=== PATIENT | female | born 1995 | race American Indian/Alaskan Native ===

== ENCOUNTER 2020-02-16 21:16 | Emergency (ER) | payer SELFPAY ==
[2020-02-16 21:31] VITALS: BP 123/68
[2020-02-16] MEDS ORDERED: IBUPROFEN 600 MG TAB PO ONE (21:34)
[2020-02-16] MEDS ORDERED: predniSONE 20 MG TAB PO ONE (21:34)
[2020-02-16] MEDS ORDERED: ACETAMINOPHEN 500 MG TAB PO ONE (21:35)
[2020-02-16 22:20] LABS: Bacteria,Urine 1+ /HPF (Negative); Bilirubin,Urine NEG (Negative); Blood,Urine NEG (Negative); Color,Urine Yellow (Yellow); Mucus,Urine FEW /HPF; Protein,Urine <15 mg/dL mg/dL (Negative); RBC,Urine < 1.0 /HPF (0.0-6.0); Urobilinogen,Urine < 2.0 mg/dL (<2.0)
[2020-02-16 22:21] LABS: HCG Qualitative,Urine Negative (Negative)
--- NOTE | 2020-02-16 23:12 | Emergency Department Report ---
ED Back Pain/Injury HPI - General Chief Complaint: Back Pain/Injury Stated Complaint: BACK PAIN Source: patient Limitations: No Limitations - History of Present Illness Initial Comments: Patient is a 24-year-old female with past medical history of chronic low back pain who presents to the ED with complaint of acute exacerbation of her chronic low back pain for the last 1 week, worse in the last 2 days. Patient states that the pain is sharp, constant with a burning sensation and that it is nonradiating. Patient denies dysuria, urinary frequency and urgency, vaginal bleeding, fall, heavy lifting, traumatic injury, dizziness, fever, chills, abdominal pain, numbness and tingling or weakness of lower extremities bilaterally. MD Complaint: back pain -: Sudden, week(s) (1) Similar Symptoms Previously: Yes Place: home Radiation: none Severity: severe Severity scale (0 -10): 8 Quality: sharp, aching Consistency: constant Worsens With: movement Context: other (spontaneous) Associated Symptoms: denies other symptoms. denies: confusion, weakness, chest pain, numbness, diaphoresis, fever/chills, constipation, abdominal pain, loss of appetite, rash, seizure, shortness of breath, syncope - Related Data Previous Rx's Medication Instructions Recorded Last Taken Type Ibuprofen [Motrin] 600 mg PO Q8H PRN #30 tablet 02/16/20 Unknown Rx methOCARBAMOL [Robaxin TAB] 500 mg PO Q12H PRN #24 tab 02/16/20 Unknown Rx predniSONE [Deltasone] 40 mg PO QDAY #10 tab 02/16/20 Unknown Rx traMADoL [Ultram] 50 mg PO Q6HR PRN #12 tablet 02/16/20 Unknown Rx Allergies Allergy/AdvReac Type Severity Reaction Status Date / Time No Known Allergies Allergy Unverified 02/16/20 21:26 ED Review of Systems ROS: Stated complaint: BACK PAIN Other details as noted in HPI Constitutional: denies: chills, fever Eyes: denies: eye pain, eye discharge, vision change ENT: denies: ear pain, throat pain Respiratory: denies: cough, shortness of breath, wheezing Cardiovascular: denies: chest pain, palpitations Endocrine: no symptoms reported Gastrointestinal: denies: abdominal pain, nausea, diarrhea Genitourinary: denies: urgency, dysuria, discharge Musculoskeletal: back pain (Low back pain), arthralgia. denies: joint swelling (l) Skin: denies: rash, lesions Neurological: denies: headache, weakness, paresthesias Psychiatric: denies: anxiety, depression Hematological/Lymphatic: denies: easy bleeding, easy bruising ED Past Medical Hx - Past Medical History Previous Medical History?: No - Surgical History Past Surgical History?: No - Social History Smoking Status: Never Smoker Substance Use Type: None - Medications Home Medications: Home Medications Medication Instructions Recorded Confirmed Last Taken Type Ibuprofen [Motrin] 600 mg PO Q8H PRN #30 tablet 02/16/20 Unknown Rx methOCARBAMOL [Robaxin TAB] 500 mg PO Q12H PRN #24 tab 02/16/20 Unknown Rx predniSONE [Deltasone] 40 mg PO QDAY #10 tab 02/16/20 Unknown Rx traMADoL [Ultram] 50 mg PO Q6HR PRN #12 tablet 02/16/20 Unknown Rx ED Physical Exam - General Limitations: No Limitations General appearance: alert - Head Head exam: Present: atraumatic, normocephalic, normal inspection - Eye Eye exam: Present: normal appearance, PERRL, EOMI Pupils: Present: normal accommodation - ENT ENT exam: Present: normal exam, normal orophraynx, TM's normal bilaterally, normal external ear exam. Absent: mucous membranes dry, mucous membranes moist - Neck Neck exam: Present: normal inspection, full ROM - Respiratory Respiratory exam: Present: normal lung sounds bilaterally. Absent: respiratory distress, wheezes, stridor, chest wall tenderness, accessory muscle use, decreased breath sounds - Cardiovascular Cardiovascular Exam: Present: normal rhythm, tachycardia, normal heart sounds. Absent: systolic murmur, diastolic murmur, rubs, gallop - GI/Abdominal GI/Abdominal exam: Present: soft, normal bowel sounds. Absent: tenderness, guarding, hyperactive bowel sounds, organomegaly, mass - Extremities Exam Extremities exam: Present: normal inspection, full ROM, normal capillary refill - Back Exam Back exam: Present: normal inspection, full ROM, tenderness (Palpable lumbosacral paraspinal tenderness), muscle spasm, paraspinal tenderness - Neurological Exam Neurological exam: Present: alert, oriented X3, CN II-XII intact, normal gait, reflexes normal - Psychiatric Psychiatric exam: Present: normal affect, normal mood - Skin Skin exam: Present: warm, dry, intact, normal color. Absent: rash ED Course Vital Signs 02/16/20 21:28 Temperature 98.1 F Pulse Rate 122 H Respiratory 18 Rate Blood Pressure 123/68 O2 Sat by Pulse 97 Oximetry ED Medical Decision Making - Medical Decision Making This is a 24-year-old female with past medical history of chronic low back pain who presents to the ED with complaint of acute exacerbation of her chronic low back pain for the last 1 week, worse in the last 2 days. Patient states that the pain is sharp, constant with a burning sensation and that it is nonradiating. In the ED, patient is alert and oriented x3 and is not in distress but appears to be in pain, is tachycardic but afebrile in triage. Urinalysis is unremarkable. Patient was treated for pain in the ED and on reevaluation, patient's pain is well controlled medication. The patient's tachycardia also resolved after treatment for pain. Patient was therefore discharged home on pain medications and muscle relaxants and was advised to follow-up with her primary care physician in 7 to 10 days for reevaluation or return to the ED immediately if symptoms get worse. - Differential Diagnosis Muscle spasm; muscle strain; chronic pain; UTI; sciatica Critical care attestation.: If time is entered above; I have spent that time in minutes in the direct care of this critically ill patient, excluding procedure time. ED Disposition Clinical Impression: Spasm of muscle of lower back Chronic low back pain without sciatica Qualifiers: Back pain laterality: bilateral Qualified Code(s): M54.5 - Low back pain Disposition: - TO HOME OR SELFCARE Is pt being admited?: No Does the pt Need Aspirin: No Condition: Stable Instructions: Muscle Cramps and Spasms, [id number], Chronic Back Pain, [id number] Additional Instructions: Take medications with food, drink plenty of fluids and follow up with the Primary care physician in 7-10 days for reevaluation. Return to the ED immediately if symptoms get worse Prescriptions: predniSONE [Deltasone] 40 mg PO QDAY #10 tab Ibuprofen [Motrin] 600 mg PO Q8H PRN #30 tablet PRN Reason: Pain methOCARBAMOL [Robaxin TAB] 500 mg PO Q12H PRN #24 tab PRN Reason: Muscle Spasm traMADoL [Ultram] 50 mg PO Q6HR PRN #12 tablet PRN Reason: Pain Referrals: [facility] [Provider Group] - 3-5 Days Print Language: SCOTTISH
== END 2020-02-16 23:52 | disposition left against medical advice (07) ==
LOC: ED 21:16
DX: M62.830 Muscle spasm of back (principal); Z79.899 Other long term (current) drug therapy
CPT/HCPCS: 81001; 81025; 99282; J7512